=== PATIENT | male | born 1950 | race Caucasian/White ===

== ENCOUNTER 2016-10-20 20:22 | Emergency (ER) | payer MEDICARE, BC ==
[~2016-10-20] VITALS: Ht 180.3 cm; Wt 78.6 kg
[2016-10-20 20:23] VITALS: PULSE 80; TEMP 98.3
== END 2016-10-20 20:35 | disposition left against medical advice (07) ==
LOC: COL.ER 20:22
DX: T18.120A Food in esophagus causing compression of trachea, initial encounter (principal)

== ENCOUNTER → 2016-11-22 | Outpatient (CLI) | payer MEDICARE, BC | LOC: MHCPAIN 14:00 | DX: G89.29 Other chronic pain (principal); M47.27 Other spondylosis with radiculopathy, lumbosacral region | CPT/HCPCS: G0463 ==

== ENCOUNTER → 2017-10-09 | Outpatient (CLI) | payer BC, MEDICARE | LOC: MHCPAIN 09:43 | DX: G89.29 Other chronic pain (principal); M47.817 Spondylosis without myelopathy or radiculopathy, lumbosacral region; M54.16 Radiculopathy, lumbar region; M53.3 Sacrococcygeal disorders, not elsewhere classified; M96.1 Postlaminectomy syndrome, not elsewhere classified | CPT/HCPCS: G0463 ==

== ENCOUNTER → 2017-10-11 | Outpatient (CLI) | payer BC, MEDICARE | LOC: MHCPAIN 10:06 | DX: M53.3 Sacrococcygeal disorders, not elsewhere classified (principal) | CPT/HCPCS: J1040; Q9967 ==

== ENCOUNTER → 2017-11-06 | Outpatient (CLI) | payer BC, MEDICARE | LOC: MHCPAIN 10:13 | DX: G89.29 Other chronic pain (principal); M47.817 Spondylosis without myelopathy or radiculopathy, lumbosacral region; M54.16 Radiculopathy, lumbar region; M53.3 Sacrococcygeal disorders, not elsewhere classified | CPT/HCPCS: G0463 ==

== ENCOUNTER → 2018-01-28 | Outpatient (CLI) | payer BC, MEDICARE | LOC: MHCPAIN 10:34 | DX: G89.29 Other chronic pain (principal); M47.817 Spondylosis without myelopathy or radiculopathy, lumbosacral region; M54.16 Radiculopathy, lumbar region; M53.3 Sacrococcygeal disorders, not elsewhere classified; M96.1 Postlaminectomy syndrome, not elsewhere classified | CPT/HCPCS: G0463 ==

== ENCOUNTER → 2018-04-22 | Outpatient (CLI) | payer BC, MEDICARE | LOC: MHCPAIN 10:51 | DX: G89.29 Other chronic pain (principal); M47.817 Spondylosis without myelopathy or radiculopathy, lumbosacral region; M54.16 Radiculopathy, lumbar region; M53.3 Sacrococcygeal disorders, not elsewhere classified; M96.1 Postlaminectomy syndrome, not elsewhere classified | CPT/HCPCS: G0463 ==

== ENCOUNTER → 2018-10-22 | Outpatient (CLI) | payer BC, MEDICARE | LOC: MHCPAIN 10:09 | DX: G89.29 Other chronic pain (principal); M47.817 Spondylosis without myelopathy or radiculopathy, lumbosacral region; M54.16 Radiculopathy, lumbar region; M53.3 Sacrococcygeal disorders, not elsewhere classified; M96.1 Postlaminectomy syndrome, not elsewhere classified | CPT/HCPCS: G0463 ==

== ENCOUNTER → 2019-04-22 | Outpatient (CLI) | payer BC, MEDICARE | LOC: MHCPAIN 09:51 | DX: M53.3 Sacrococcygeal disorders, not elsewhere classified (principal); M79.18 Myalgia, other site | CPT/HCPCS: G0463 ==

== ENCOUNTER 2023-09-21 05:14 | Inpatient (IN) | payer MEDICARE ==
[2023-09-21] VITALS (10 sets, daily range): BP systolic 111–135; BP diastolic 60–77; PULSE 54–67; TEMP 97.9–98.5
[~2023-09-21] VITALS: Ht 180.3 cm; Wt 88.7 kg
[~2023-09-21 05:14] MED LIST: LR 1,000 ML IV SCH
[2023-09-21] MEDS ORDERED: PRINIVIL10 MG PO (06:13)
[2023-09-21] MEDS ORDERED: ADCIRCA20 MG PO (06:14)
[2023-09-21] MEDS ORDERED: PRILOSEC 20MG20 MG PO (06:14)
[2023-09-21] MEDS ORDERED: VITAMIN D31000 I1 PO (06:15)
[2023-09-21] MEDS ORDERED: FLOMAX 0.40.4 MG/CAP PO (06:15)
[2023-09-21] MEDS ORDERED: PROSCAR 5MG5 MG PO (06:16)
[2023-09-21] MEDS ORDERED: FOSAMAX 70MG TA70 MG PO ×2 (06:17→15:14)
[2023-09-21] MEDS ORDERED: Ondansetron 4 MG/2 ML VIAL ONE (06:35)
[2023-09-21] MEDS ORDERED: fentaNYL 50 MCG/ML 2 ML VIAL ONE (06:35)
[2023-09-21] MEDS ORDERED: NS 10 ML IV ONE (06:35)
[2023-09-21] MEDS ORDERED: Midazolam 2 MG/2 ML VIAL ONE (06:35)
[2023-09-21] MEDS ORDERED: Lidocaine PF 2% (20 MG/ML) 5 ML VIAL ONE (06:35)
[2023-09-21] MEDS ORDERED: dexAMETHasone 10 MG/ML VIAL ONE (06:35)
[2023-09-21] MEDS ORDERED: Glycopyrrolate 0.2 MG/ML 1 ML VIAL ONE (06:35)
[2023-09-21] MEDS ORDERED: diphenhydrAMINE 25 MG CAP PO PRN (07:00)
[2023-09-21] MEDS ORDERED: Docusate Sodium 100 MG CAP PO PRN (07:00)
[2023-09-21] MEDS ORDERED: D5 1/2 NS 1,000 ML IV SCH (07:00)
[2023-09-21] MEDS ORDERED: Magnes Hydrox (MOM) 80 MG/ML 30 ML CUP PO PRN (07:00)
[2023-09-21] MEDS ORDERED: diphenhydrAMINE 50 MG/ML 1 ML VIAL IV PRN (07:00)
[2023-09-21] MEDS ORDERED: oxyCODONE 5 MG TAB PO PRN (07:00)
[2023-09-21] MEDS ORDERED: Ondansetron 4 MG/2 ML VIAL IV PRN ×2 (07:00→08:30)
[2023-09-21] MEDS ORDERED: Mag/Al Hydrox/Simeth Susp 30 ML CUP PO PRN (07:00)
[2023-09-21] MEDS ORDERED: HYDROmorphone 0.5 MG/0.5 ML SYRINGE IV PRN (07:00)
[2023-09-21] MEDS ORDERED: Naloxone 0.4 MG/ML VIAL IV PRN (07:00)
[2023-09-21] MEDS ORDERED: ePHEDrine 50 MG/ML VIAL ONE (07:26)
[2023-09-21] MEDS ORDERED: EPINEPHrine 1 MG/1 ML Ampule IR ONE (07:42)
[2023-09-21] MEDS ORDERED: Topical Skin Adhesive 1 EACH (1 ML) TOP ONE (07:42)
[2023-09-21] MEDS ORDERED: HYDROmorphone 1 MG/1 ML SYRINGE [PACU/SDC ONLY] IV PRN (08:30)
[2023-09-21] MEDS ORDERED: Meperidine 50 MG/ML 1 ML VIAL IV PRN (08:30)
[2023-09-21] MEDS ORDERED: Morphine 2 MG/1 ML VIAL [PACU/SDC ONLY] IV PRN (08:30)
[2023-09-21] MEDS ORDERED: Celecoxib 200 MG CAP PO SCH (09:00)
--- NOTE | 2023-09-21 09:20 | NUR ---
Pt. arrived to the floor from PACU. Pt. is A&OX3, assessment complete. Dressing to rt. shoulder CDI. Shoulder sling on. Pt. denies pain or other needs, call light within reach.
[2023-09-21] MEDS ORDERED: ceFAZolin 2 G in Water For Injection,Sterile 20 ML IV SCH (14:30)
[2023-09-21] MEDS ORDERED: Melatonin 3 MG TAB PO PRN (21:00)
[2023-09-21] MEDS ORDERED: Finasteride 5 MG TAB PO SCH (21:00)
[2023-09-22] VITALS (13 sets, daily range): BP systolic 110–128; BP diastolic 65–76; PULSE 54–65; TEMP 98–98.3
[2023-09-22] MEDS ORDERED: Omeprazole 10 MG **** subs to Pantoprazole 20 MG PO SCH (07:00)
--- NOTE | 2023-09-22 07:30 | NUR ---
SHIFT ASSESSMENT COMPLETE. VSS. PATIENT AWAKE IN BED.MORNING MEDS GIVEN ORDERED. PATIENT STATES HE DID NOT GET MUCH SLEEP DUE TO CONSTANT ACHING PAIN THROUGHOUT THE NIGHT, SO FEELING EXHAUSTED THIS AM. PATIENT REPORTS PAIN THIS AM 5/10 PAIN MEDS GIVEN ORDERED. PATIENT IS AWAITING PT TO COME AND HELP HIM LEARN/ASSIST HIM ON AMBULATING IN HIS CURRENT CONDITION. PATIENT HAS NO OTHER NEEDS OR REQUEST AT THIS TIME. FALL PRECAUTIONS IN PLACE AND CALL LIGHT IN REACH.
[2023-09-22] MEDS ORDERED: Lisinopril 10 MG TAB PO SCH (09:00)
[2023-09-22] MEDS ORDERED: Cholecalciferol (Vit D3) 1000 Units TAB PO SCH (09:00)
--- NOTE | 2023-09-22 11:00 | NUR ---
Data: Spiritual care visit offered during Flap Lining Binder rounds. Patient declined. Assessment: None. Patient declined. Plan of Care: Flap Lining Binder educated Patient as to how to request a Flap Lining Binder should he change his mind. Chaplains will remain available as requested while Patient is admitted to this hospital.
--- NOTE | 2023-09-22 11:01 | NUR ---
SHIFT ASSESSMENT COMPLETE. VSS. PATIENT UP WALKING THE HALLS THIS AM. ALL MORNING MEDS GIVEN ORDERED. PATIENT STATED PAIN THROUGHOUT THE NIGHT BUT PAIN 3/10 THIS AM. PATIENT CURRENTLY NPO STATUS WILL ADVANCE TO [facility] FOR LUNCH TO SEE HOW SHE TOLERATES. PATIENT STATES NO BM OR GAS MOVMENT THIS AM. PATIENT HAS NO REQUEST AT THIS TIME. CALL LIGHT IN REACH
--- NOTE | 2023-09-22 14:01 | NUR ---
SW met with patient to complete initial assessment for discharge planning. Patient verified that he lives in [place] with his of 50 years Hattie ([phone]). Patient sees Concha August APRN as his PCP and uses [facility] pharmacy. Patient has crutches, wheelchair and shower chair at home. Patient denies having assigned DPOA to anyone but states his will make his decisions if needed. SW discussed rehab with patient including IPR and SNF. Patient does not qualify for SNF at this time due to admission status of [facility]. ZAID called Ginette with IPR to make referral for rehab. Discharge plan: IPR
[2023-09-23] VITALS (10 sets, daily range): BP systolic 114–144; BP diastolic 67–80; PULSE 58–71; TEMP 98.1–98.3
--- NOTE | 2023-09-23 06:03 | NUR ---
PT PAIN CONTROLLED WITH PO MEDS THIS SHIFT, ATTEMPTED BEDPAN THIS AM FOR BM, WAS ONLY ABLE TO PASS GAS, VOIDING PER URINAL. ICE PACK AND IMMOBILIZER TO RT SHOULDER. PT FEELS LIKE HE HAS TOO MUCH MOVEMENT IN THAT SHOULDER, TIGHTENED UP VELCO STRAPS, AND PILLOW PLACED UNDER ARM. WILL CHECK WITH ORTHO THIS AM ON HOW MUCH MOVEMENT IS ACCEPTABLE.
[2023-09-23] MEDS ORDERED: FOSAMAX 70 MG PO SCH (07:15)
[2023-09-23] MEDS ORDERED: oxyCODONE 5 MG TAB PO PRN ×4 (07:15→07:45)
--- NOTE | 2023-09-23 08:00 | NUR ---
PT AWAKE AND RESTING IN BED. SCHEDULED MEDS GIVEN PER eMAR. SLING ON RIGHT ARM. SIX GAUZE DRESSINGS TO THE RIGHT SHOULDER, CDI. PT C/O CONSTANT PAIN THAT IS MOSTLY RELIEVED WHEN HE IS SITTING UP IN BED. BED ALARM ON AND CALL LIGHT WITHIN REACH.
[2023-09-23] MEDS ORDERED: Patient's Own Medication Item PO SCH (14:30)
--- NOTE | 2023-09-23 18:18 | NUR ---
PT HAD MULTIPLE REQUESTS FOR BEDPAN THIS SHIFT WITH NO BM. OFFERED STOOL SOFTENER. PT AGREED TO COLACE. PRN COLACE GIVEN. PT REMAINS [facility] ON IPR TRANSFER TOMORROW. NO FURTHER CONCERNS AT THIS TIME. AT BEDSIDE. BED ALARM ON AND CALL LIGHT WITHIN REACH.
--- NOTE | 2023-09-23 18:21 | NUR ---
This nurse reviewed all documentation completed by SHELLY Valencia. Agree with all assessments and notes.
[2023-09-24] VITALS (7 sets, daily range): BP systolic 104–132; BP diastolic 61–84; PULSE 60–81; TEMP 98–98.2
--- NOTE | 2023-09-24 06:37 | NUR ---
PT REPORTS GOOD PAIN CONTROL TONIGHT, ABLE TO SLEEP AFTER HS MEDS GIVEN. NO BM THIS SHIFT, PRN COLACE GIVEN.
--- NOTE | 2023-09-24 06:49 | NUR ---
Pt sleeping in bed. Call light in reach.
--- NOTE | 2023-09-24 08:00 | NUR ---
Pt sitting up in bed. A&Ox4. VSS. S1S2. Clear lungs on RA. ABD round, soft, non-tender with audible bowel sounds. Palpable pulses in all extremities. Pt moving BLE with L arm. Shifting weight by himself. Pt deneis pain, n/v at this time. Pt reports no BM in multiple days. Discussed options. Pt had 2 doses of Colace last night, opted with MOM this AM. Pt discussed possibility of being transferred to [facility] today. Discussed referral process and approval. No further needs at this time. Call light in reach.
--- NOTE | 2023-09-24 12:43 | NUR ---
SW attended clinical rounds with team. Patient awaiting acceptance to IPR. ZAID notified by She with IPR that patient will be admitted today, patient was notified. Awaiting discharge orders.
--- NOTE | 2023-09-24 13:37 | NUR ---
D: Gas Shovel Operator stopped by room on rounds. A: Pt was getting ready to eat lunch. Pt has no needs right now. Pt appreciated the visit. P: Gas Shovel Operator informed pt that if he needed anything to let his nurse know. Gas Shovel Operator will follow up as needed.
--- NOTE | 2023-09-24 15:28 | NUR ---
Discontinued Pt's IV from L hand. Pressure bandage in place. Pt ambulated to IPR unit with this RN and ELMER Vogt. No further needs.
== END 2023-09-24 15:30 | DRG 509 ==
LOC: INPTSU 05:14 → SURG 05:14 → SDCO 05:14 → EDSTATUS 07:30 → SURG 09:50 → INPTSU 09:50 → SDCO 09-22 17:59 → SURG 09-22 18:00
PROVIDERS: ADMIT Orthopaedic Surgery Sports Medicine
PROC: 0RJJ4ZZ Inspection of Right Shoulder Joint, Percutaneous Endoscopic Approach (ICD-10-PCS; principal; 2023-09-22)
PROC: 0LQ14ZZ Repair Right Shoulder Tendon, Percutaneous Endoscopic Approach (ICD-10-PCS; 2023-09-22)
DX: M75.101 Unspecified rotator cuff tear or rupture of right shoulder, not specified as traumatic (principal); M19.011 Primary osteoarthritis, right shoulder
CPT/HCPCS: A4619; A9284; C1713; J0171; J0688; J0690; J1100; J1170; J2250; J2405; J2704; J2795; J3010; J7120

== ENCOUNTER 2023-09-24 11:32 | Inpatient (IN) | payer MEDICARE ==
[~2023-09-24] VITALS: Ht 180.3 cm; Wt 86.1 kg
[~2023-09-24 11:32] MED LIST changes: +ADCIRCA20 MG PO; +FLOMAX 0.40.4 MG/CAP PO; +FOSAMAX 70MG TA70 MG PO; -LR 1,000 ML IV SCH; +PRILOSEC 20MG20 MG PO; +PRINIVIL10 MG PO; +PROSCAR 5MG5 MG PO; +VITAMIN D31000 I1 PO
[2023-09-24] MEDS ORDERED: Sennosides/Docusate 8.6-50 MG TAB PO PRN (15:30)
[2023-09-24] MEDS ORDERED: Naloxone 0.4 MG/ML VIAL IV PRN (15:30)
[2023-09-24] MEDS ORDERED: Acetaminophen 325 MG TAB PO PRN (15:30)
[2023-09-24] MEDS ORDERED: Docusate Sodium 100 MG CAP PO PRN (15:30)
[2023-09-24] MEDS ORDERED: Polyethylene Glycol 3350 17 GM PDS PO PRN (15:30)
--- NOTE | 2023-09-24 16:05 | NUR ---
Pt transferred from surgical unit to [facility]. Oriented Pt and family to new room. No further needs at this time.
[2023-09-24 16:09] VITALS: BP 104/61; PULSE 72; TEMP 98.2
[2023-09-24 16:10] VITALS: BP_SYST 104
[2023-09-24] MEDS ORDERED: oxyCODONE 5 MG TAB PO PRN (16:45)
[2023-09-24 17:30] VITALS: BP 132/69; PULSE 85; TEMP 98.1
--- NOTE | 2023-09-24 19:00 | NUR ---
BEDSIDE SHIFT REPORT RECIEVED AT THIS TIME.
[2023-09-24 20:00] VITALS: BP_SYST 132
--- NOTE | 2023-09-24 20:04 | NUR ---
SHIFT ASSESSMENT COMPLETED AT THIS TIME. PT DENIES PAIN, SOB AND NAUSEA. FAMILY AT BEDSIDE. MEDICATION ADMINISTRATION COMPLETED WITHOUT COMPLICATIONS. FALL RISK PRECAUTIONS IN PLACE. CALL LIGHT WITHIN REACH. NO FURTHER NEEDS AT THIS TIME.
[2023-09-24] MEDS ORDERED: Finasteride 5 MG TAB PO SCH (21:00)
[2023-09-25] MEDS ORDERED: TADALAFIL 20 MG PO SCH (05:00)
[2023-09-25] MEDS ORDERED: Patient's Own Medication Item PO SCH (05:00)
[2023-09-25 05:36] VITALS: BP 127/73; PULSE 58; TEMP 98
[2023-09-25] MEDS ORDERED: Omeprazole 20 MG **** subs to Pantoprazole 40 MG PO SCH (07:00)
[2023-09-25 07:31] VITALS: BP_SYST 127
--- NOTE | 2023-09-25 07:33 | NUR ---
PT AWAKE AND RESTING IN BED. SCHEDULED MEDS GIVEN PER eMAR. SLING IN PLACE ON R ARM. SIX GAUZE DRESSINGS TO RIGHT SHOULDER, CDI. PT DENIES PAIN AND SOA. PT REPORTS NO COMPLAINTS WITH BOWELS AT THIS TIME. PT STATES HE IS ANXIOUS ABOUT THERAPY AND INPATIENT STAY. ALL QUESTIONS ANSWERED. BED ALARM ON AND CALL LIGHT WITHIN REACH. NO FURTHER CONCERNS AT THIS TIME.
[2023-09-25] MEDS ORDERED: Lisinopril 10 MG TAB PO SCH (09:00)
[2023-09-25] MEDS ORDERED: Cholecalciferol (Vit D3) 1000 Units TAB PO SCH (09:00)
--- NOTE | 2023-09-25 10:11 | NUR ---
PT C/O IRRITATION AROUND LEFT SIDE OF NECK D/T SLING PLACEMENT. APPLIED GAUZE AND TYE WRAP AROUND SLING TO REDUCE IRRITATION.
--- NOTE | 2023-09-25 16:30 | NUR ---
PT STATES NO RELIEF WITH GAUZE AND TYE WRAP AROUND SLING. REQUESTS PILLOWCASE TO BE USED INSTEAD. THIS NURSE PUT PILLOWCASE AROUND THEIR SLING.
[2023-09-25 16:45] VITALS: BP 122/76; PULSE 69; TEMP 98.2
--- NOTE | 2023-09-25 16:54 | NUR ---
Pt's brought in chair gilson Pt uses daily at home. Pt expressed he would like to use this chair as it is easier for him to get up out of over our recliner. Will have PT and OT evaluate chair and safety of use in AM.
[2023-09-25 19:54] VITALS: BP_SYST 122
--- NOTE | 2023-09-25 19:58 | NUR ---
SHIFT ASSESSMENT COMPLETED AT THIS TIME, PT A&OX4. PT REPORTS 4/10 PAIN IN HIS RIGHT SHOULDER. PRN TYELNOL ADMINISTERED AT THIS TIME ALONG WITH SCHEDULED EVENING MEDICATIONS WITHOUT COMPLICATIONS. PT DENIES NAUSEA AND SOB. PT ASSISTED ON THE BEDPAN. FALL PRECAUTIONS IN PLACE. CALL LIGHT WITHIN REACH. NO FURTHER NEEDS.
[2023-09-26 05:31] VITALS: BP 123/76; PULSE 58; TEMP 97.9
[2023-09-26 08:00] VITALS: BP_SYST 123
--- NOTE | 2023-09-26 09:29 | NUR ---
PATIENT ALERT AND ORIENTED X4. VSS. PATIENT HERE FOR RIGHT SHOULDER ARTHROPLASTY. SITES X6 CDI WITH GAUZE/TEGADERM. PATIENT REPORTS MILD PAIN THIS AM, DENIES NEED FOR PAIN MEDICATION. AM MEDS ADMINISTERED. PATIENT EATING BREAKFAST, WAITING ON THERAPY TO BEGIN. NO FURTHER NEEDS. CALL LIGHT IN REACH. BED ALARM ON.
--- NOTE | 2023-09-26 10:04 | NUR ---
Late entry: SW met with patient and Hattie ([phone]) late yesterday to complete initial assessment for discharge planning. They verify that they live in [place], patient sees Concha August APRN as PCP and they use [facility]. Patient uses crutches, wheelchair and shower chair at home for DME. He denies having a DPOA completed at this time. Patient is experiencing increased sadness and depression related to loss of independence. He is motivated to work with therapy during IPR admission to regain as much independence as possible. SW will follow up to schedule family meeting at a later time. Discharge plan dependent on progress with therapy. Discharge plan: re-eval
--- NOTE | 2023-09-26 13:20 | NUR ---
SW met with patient to provide copy of team conference notes and discuss discharge needs. Patient discussed his frustration and sadness related to loss of independence. Patient voiced fear of "ending up in correction with undertrain staff caring for him." Patient fearful of having another fall once he leaves IPR. Discussed scheduleing a family meeting for 10/02 at 1030 which was written on white board in room. Patient feels like he will not be strong enough or independent enough to return home at discharge from IPR and states he "knows he will need more therapy." Discussed possible referral to [facility] as plan B for discharge. Patient voiced excitement with this option if needed. Encouraged patient to continue to work hard with therapy and discussed the progress that he can make while in IPR. SW will continue to follow. Discharge plan: Home vs SNF/SB
[2023-09-26] MEDS ORDERED: FOSAMAX 70 MG PO SCH (17:15)
[2023-09-26 18:12] VITALS: BP 129/66; PULSE 67; TEMP 97.6
[2023-09-26 21:20] VITALS: BP_SYST 129
--- NOTE | 2023-09-26 21:30 | NUR ---
IM sitting up in bed upon this nurse's entry to room. A&Ox4. Scheduled medications along w/ PRN roxicodone administered per pt request. Aching pain to right shoulder reported. Shift assessment performed. Right upper extremity remains immobilized in sling. x6 gauze dressings CDI to right shoulder. Ice pack given to pt to ice right shoulder. Pt denies any loss of sensation to RUE. Pulses palpable and present. Pt denies any needs or concerns. Call light in reach. Care ongoing.
[2023-09-27 06:15] VITALS: BP 116/66; PULSE 72; TEMP 97.8
[2023-09-27 09:40] VITALS: BP_SYST 116
--- NOTE | 2023-09-27 09:40 | NUR ---
Pt. sitting up in bed. Pt. is A&OX3, assessment complete. Pt. assisted with getting dressed. Pt. able to dress self with mininal assist. Only needing help with shirt and sling. Pt. reports pain at a 3 and states, "it's there", but denies need for pain medication. Pt. then transfered to the wheelchair with sb assist and slide board. Pt. was able to independently transfer self with this nurse just holding the slide board to prevent it from moving. Pt. able to complete am cares independently. Pt. denies further needs, call light within reach.
[2023-09-27 16:49] VITALS: BP 122/70; PULSE 64; TEMP 98.3
[2023-09-27 20:00] VITALS: BP_SYST 122
--- NOTE | 2023-09-27 20:30 | NUR ---
UPON SHIFT ASSESSMENT SY WAS IN BEDSIDE RECLINER WITH VISITING BEDSIDE. HE IS AXO X4 AND VS ARE WNL. RT SHOULDER INSCISION SITE COVERED WITH GUAZE AND TEGADERM CDI. DISTAL PULSES, COLOR, CAP REFILL AND SENSATIONS GOOD. PATIENT C/O SLIGHT TINGLING IN RT ELBOW-NEURO CHECK WNL. LOOSENED SLING ON RT SHOULDER MOMENTARILY TO ALLEVIATE [id number] SLING. CALL LIGHT WITHIN REACH AND BED ALARM ON.
--- NOTE | 2023-09-28 02:00 | NUR ---
PATIENT RESTING PEACEFULLY SUPINE. RR 16. NO SIGNS OF DISTRESS.
[2023-09-28 05:32] VITALS: BP 119/56; PULSE 66; TEMP 98.2
[2023-09-28 08:00] VITALS: BP_SYST 119
--- NOTE | 2023-09-28 08:30 | NUR ---
PATIENT A&O X4. VSS. NO C/O PAIN OR N/V. PATIENT IS ASSIST X1. USES SLIDE BOARD FOR TRANSFERS. NWB ON R SHOULDER. MORNING MEDICATIONS ADMINISTERED AND SHIFT ASSESSMENT COMPLETE. NO FURTHER NEEDS AT THIS TIME. CALL LIGHT WITHIN REACH.
[2023-09-28] MEDS ORDERED: diphenhydrAMINE 25 MG CAP PO PRN (11:00)
--- NOTE | 2023-09-28 14:27 | NUR ---
Admission QIM scores were reviewed by the team. Code of 5 chosen for oral hygiene was determined by team discussion to be the most usual performance before interventions for this patient during the assessment period. Code of 88 chosen for toileting hygiene was determined by team discussion to be the most usual performance for this patient during the discharge assessment period. Code of 1 chosen for toilet transfers was determined by team discussion to be the most usual performance for this patient during the discharge assessment period. Code of 1 chosen for chair to bed was determined by team discussion to be the most usual performance for this patient during the discharge assessment period. Code of 2 chosen for wheel 50 feet w/ 2 turns was determined by team discussion to be the most usual performance before interventions for this patient during the assessment period.--Capri Bey, PD
--- NOTE | 2023-09-28 15:39 | NUR ---
linen room worker met with pt to check-in and assess for any needs. He states he is "all good" and does not need anything. Discharge Plan: re-eval
[2023-09-28 17:04] VITALS: BP 114/69; PULSE 63; TEMP 98.1
[2023-09-28 19:34] VITALS: BP_SYST 114
[2023-09-28] MEDS ORDERED: Melatonin 3 MG TAB PO SCH (21:00)
[2023-09-29 04:53] VITALS: BP 106/64; PULSE 61; TEMP 97.8
[2023-09-29 08:45] VITALS: BP_SYST 106
--- NOTE | 2023-09-29 08:55 | NUR ---
PT RESTING IN BED, ALERT AND ORIENTEDX4. RATES PAIN 3/10 IN THE RIGHT SHOULDER. ASSESESD PT. HELPED PT GET DRESSED AND READJUSTED BRACE. YAQUELIN ON SHOULDER IS CLEAN DRY INTACT. GAVE MORNING MEDS. NO OTHER COMPLAINTS AT THIS TIME. CALL LIGHT WITHIN REACH.
[2023-09-29 17:01] VITALS: BP 112/63; PULSE 78; TEMP 98.8
[2023-09-29 19:04] VITALS: BP_SYST 112
[2023-09-30 05:36] VITALS: BP 113/69; PULSE 56; TEMP 97.7
[2023-09-30] MEDS ORDERED: Patient's Own Medication Item PO SCH (07:00)
[2023-09-30 08:03] VITALS: BP_SYST 113
--- NOTE | 2023-09-30 08:07 | NUR ---
PT RESTING IN BED, ALERT AND ORIENTEDX4. RATES PAIN 4/10 WHEN MOVING THE RIGHT ARM BUT NO PAIN WHEN SITTING STILL. ASSESSED PT. YAQUELIN AND TEGADERM ON RIGHT SHOULDER INTACT. GAVE MORNING MEDS. HELPED PT GET CLOTHES TO GET DRESSED. NO OTHER COMPLAINTS AT THIS TIME. CALL LIGHT WITHIN REACH.
[2023-09-30 17:42] VITALS: BP 137/75; PULSE 70; TEMP 98
[2023-09-30 20:00] VITALS: BP_SYST 137
[2023-10-01 05:52] VITALS: BP 114/69; PULSE 53; TEMP 97.7
[2023-10-01 09:24] VITALS: BP_SYST 114
[2023-10-01 17:11] VITALS: BP 117/69; PULSE 67; TEMP 98.1
--- NOTE | 2023-10-01 19:30 | NUR ---
SHIFT ASSESSMENT COMPLETE. VSS. PATIENT RESTING IN BED. PATIENT STATES PAIN 2/10 NO PAIN MEDS REQUESTED AT THIS TIME. ALL NIGHT MEDS GIVEN ORDERED. PATIENT HAS NO COMPLAINTS AT THIS TIME. CALL LIGHT IN REACH
[2023-10-01 20:00] VITALS: BP_SYST 117
--- NOTE | 2023-10-02 03:26 | NUR ---
Patient called with c/o generalized body aches-rating pain 4/10 on pain scale-requesting tylenol. Given at this time. Patient states mattress of bed feels "warped" and is slanted to the right. Report given to primary nurse PANKAJ Maharaj. Patient requesting new mattress later today.
[2023-10-02 05:45] VITALS: BP 106/67; PULSE 55; TEMP 98
[2023-10-02 09:45] VITALS: BP_SYST 106
--- NOTE | 2023-10-02 10:54 | NUR ---
PT SITTING IN BED, ASSESSMENT COMPLETED EARILER THIS MORNING. HE IS DRESSING HIMSELF. MEDICATIONS ADMINISTERED PER EMAR. NO COMPLAINTS AT THIS TIME. CALL LIGHT IN REACH
--- NOTE | 2023-10-02 11:04 | NUR ---
PATIENT ALERT AND ORIENTED X4. VSS. PATIENT HERE FOR REHAB S/P RIGHT TOTAL SHOULDER. INCISIONS X6 CDI WITH GAUZE/ TEGADERM. PATIENT REPORTS MILD PAIN, DENIES NEED FOR PAIN MEDICATION. PATIENT IN BED WAITING ON BREAKFAST. NO FURTHER NEEDS. CALL LIGHT IN REACH. BED ALARM ON.
--- NOTE | 2023-10-02 13:06 | NUR ---
SW met with patient for follow up. Patient presented with sad affect and depressed mood. Patient expressed frustration with his situation and fear of "what's next". Discussed progress patient has made with therapy. Patient voiced that he feels pushed to discharge to home and voices fear of losing use of his legs if he doesn't walk every day. SW discussed possible swing bed referral for next steps after IPR discharge. Patient voiced concern about cost of hospitalization. SW contacted financial counselor to request her to meet with patient to discuss copay and possibility of FAA for co pay amounts.
[2023-10-02] MEDS ORDERED: Ondansetron 4 MG/2 ML VIAL IV PRN (13:45)
[2023-10-02 16:49] VITALS: BP 125/74; PULSE 76; TEMP 98.4
[2023-10-02 20:46] VITALS: BP_SYST 125
--- NOTE | 2023-10-02 21:00 | NUR ---
PT A&O X4 LAYING IN BED. VSS. SHIFT ASSESSMENT & HS MEDS COMPLETE. PT DENIES NEED FOR PAIN MEDS AT THIS TIME, STATES "MY BODY JUST ACHES FROM BEING OLD". RT ARM SLING ON. X6 DRSGS TO RIGHT SHOULDER ARE CDI & ICE PACK IN PLACE. PT DENYING OTHER NEEDS. CALL LIGHT IN REACH
--- NOTE | 2023-10-03 03:17 | NUR ---
pt c/o some sore/achey pain to his shoulder & requesting tylenol, gave per mar. denying other needs. call light in reach
[2023-10-03 05:38] VITALS: BP 112/68; PULSE 56; TEMP 97.7
--- NOTE | 2023-10-03 06:16 | NUR ---
pt resting in bed. denying pain or further needs this morning. call light in reach
[2023-10-03 08:00] VITALS: BP_SYST 112
--- NOTE | 2023-10-03 12:50 | NUR ---
SW attended clinical team conference earlier this morning. Discussed patient's progress with therapy and discharge needs. SW attended family meeting with team, patient and in patient's room. Updated patient and on progress with therapy and discussed varying options for discharge plan. Discussed home with HH vs swing bed for continued rehab. Team offered home evaluation to determine patient's needs and ability. PT/OT to assess car transfers today after meeting. Discharge is tenatively for 10/08 Discharge plan: Home with HH vs SB
[2023-10-03 18:25] VITALS: BP 121/68; PULSE 63; TEMP 98.1
--- NOTE | 2023-10-03 21:20 | NUR ---
PT A&O X4 LAYING IN BED. VSS. SHIFT ASSESSMENT AND HS MEDS COMPLETE. PT IS DENYING PAIN AT THIS TIME. SLING IN PLACE TO RUE AND X6 DRESSINGS TO RIGHT SHOULDER ARE CDI. PT DENYING FURTHER NEEDS AT THIS TIME. CALL LIGHT IN REACH
--- NOTE | 2023-10-04 02:00 | NUR ---
PT REPORTING SOME PAIN AND ACHES ALL OVER HIS BODY, SPECIFICALLY HIS HIP. GAVE PRN TYLENOL PER APR.
[2023-10-04 05:41] VITALS: BP 111/64; PULSE 55; TEMP 97.6
--- NOTE | 2023-10-04 05:50 | NUR ---
pt resting in bed. denying pain or further needs at this time. call light in reach
[2023-10-04 08:00] VITALS: BP_SYST 111
--- NOTE | 2023-10-04 08:45 | NUR ---
pt a&ox4 sitting up in bed getting dressed independently. vss. pt denies pain. sling to right arm in place, incisions are cdi. meds given and assessment complete. pt tolerating diet well. denies needs at this time. call light in reach.
--- NOTE | 2023-10-04 14:21 | NUR ---
SW was informed [facility] accepts pt for Sunday.
[2023-10-04 17:46] VITALS: BP 160/96; PULSE 61; TEMP 98
--- NOTE | 2023-10-04 19:29 | NUR ---
PATIENT LAYING IN BED ALERT AND ORIENTED, VSS, DRESSINGS CDI, NO ACUTE EVENTS.
[2023-10-04 20:00] VITALS: BP_SYST 160
[2023-10-05 05:48] VITALS: BP 120/72; PULSE 52; TEMP 97.8
[2023-10-05 09:56] VITALS: BP_SYST 120
--- NOTE | 2023-10-05 11:19 | NUR ---
PATIENT ALERT AND ORIENTED X4. VSS. PATIENT HERE FOR RIGHT SHOULDER SURGERY. PATIENT DENIES PAIN THIS AM. AM MEDS ADMINISTERED. PATIENT DENIES ANY FURTHER NEEDS. CALL LIGHT IN REACH. BED ALARM ON.
--- NOTE | 2023-10-05 13:59 | NUR ---
Spoke w/ pt & informed him of [facility] acceptance. He was pleased to here this. He did inquire about transportation & told him SW will see what could be worked out but he might want to talk w/ someone just in case. He had no other questions/concerns at this time.
[2023-10-05 17:27] VITALS: BP 124/72; PULSE 73; TEMP 98.1
[2023-10-05 20:00] VITALS: BP_SYST 124
--- NOTE | 2023-10-05 21:15 | NUR ---
Pt's at bedside at [facility] of shift assisting pt. w/ oral hygiene setup. Scheduled meds administered per APR. Shift assessment complete. Pt's mood doesn't appear poor at this time, but he is discussing recently feeling "depressed" about his health. Pt. claims to be feeling "much better," however. Pt. has sling applied to R shoulder. X6 incisions to R shoulder. Dressings CDI. Pt BLE are flaccid. Pedal pulses present. All other findings WNL. Pt. denies pain at this time. Emptied 100 cc clear harry urine from urinal. No request or complaints from pt. at this time. Call light in reach
--- NOTE | 2023-10-06 03:39 | NUR ---
Pt. requesting Tylenol- c/o discomfort in lower back that he attests to lying in bed for too long. Pain rated 2/10. PRN tylenol administered per APR.
[2023-10-06 05:09] VITALS: BP 116/72; PULSE 63; TEMP 97.9
--- NOTE | 2023-10-06 05:22 | NUR ---
Pt. had uneventful evening. Minor discomfort during the night-alleviated w/ tylenol. VSS. Pt resting in bed w/ eyes closed, respirations even and unlabored. Call light in reach.
[2023-10-06 08:00] VITALS: BP_SYST 116
--- NOTE | 2023-10-06 08:00 | NUR ---
PATIENT A&O X4. NO C/O PAIN OR N/V. SHIFT ASSESSMENT COMPLETE AND MORNING MEDICATIONS ADMINISTERED. PATIENT USES SLIDEBOARD FOR SURFACE TRANSFERS AND AMBULATES WITH CRUTCHES WITH ASSIST X2 AND GAIT BELT. PATIENT IN GOOD SPIRITS THIS MORNING. NO FURTHER NEEDS AT THIS TIME. CALL LIGHT WITHIN REACH.
[2023-10-06 16:39] VITALS: BP 123/71; PULSE 62; TEMP 98.8
[2023-10-06 20:00] VITALS: BP_SYST 123
--- NOTE | 2023-10-06 20:15 | NUR ---
Assisted pt. to bed from restroom w/ PCT. Pt uses slideboard and gaitbelt to transfer to w/c. Pt. reports BM. Scheduled meds administered per APR. Shift assessment complete. Sling to Rt. shoulder in place. x6 incisions to Rt. shoulder open to air. Edges well approximated. Pt. denies pain at this time. All other findings WNL. Pt. resting in bed w/ call light in reach. No requests or complaints at this time.
[2023-10-07 05:55] VITALS: BP 116/64; PULSE 53; TEMP 97.8
--- NOTE | 2023-10-07 06:23 | NUR ---
Pt. had uneventful evening. Reports he did not sleep well last night. Scheduled meds administered per AR. Pt. denies request or complaints this morning. Call light in reach.
[2023-10-07 08:00] VITALS: BP_SYST 116
--- NOTE | 2023-10-07 08:00 | NUR ---
Patient A&Ox4. No c/o pain or n/v. Patient currently eating breakfast. Pt transfers using slideboard with assist x1 with gait belt. Pt ambulates using crutches with assist x1 and gait belt. Pt wants to ambulate with staff a couple times throughout the shift. Incision sites on R shoulder open to air and edges well approximated. Shift assessment complete and medications administered. No further needs at this time. Call light within reach.
[2023-10-07 17:35] VITALS: BP 135/74; PULSE 61; TEMP 98
[2023-10-07 19:49] VITALS: BP_SYST 135
--- NOTE | 2023-10-07 20:30 | NUR ---
Assessment complete. A&Ox3. Denies pain/nausea/shortness of breath. Right upper extremity in sling-incisions with no s/s of infection noted-edges well approximated. Refusing fresh ice pack-asked to have current one removed. VS have been stable. Plan of care discussed for this shift to include meds/pain control/calling for questions/concerns. Verbalizes understanding. Call light in reach. Will monitor.
--- NOTE | 2023-10-08 00:23 | NUR ---
Resting eyes closed. NO s/s of pain or discomfort noted. Will monitor.
[2023-10-08 05:50] VITALS: BP 117/71; PULSE 53; TEMP 97.6
[2023-10-08 08:00] VITALS: BP_SYST 117
--- NOTE | 2023-10-08 08:30 | NUR ---
Pt a&ox4. VSS. Pt c/o increased pain throughout the weekend but does not want any pain intervention at this time. Pt has been using ice and taking tylenol for pain. Pt transfers using slideboard with assist x1. Patient ambulates with assist x1-2 with gait belt and crutches. Pt currently performing ADLs independently. Shift assessment complete and morning medications administered. Call light within reach and no further needs at this time.
--- NOTE | 2023-10-08 16:47 | NUR ---
fruit i farmworker was notified by Capri, IPR director, that patient will be transferring to [facility] [facility] tomorrow, 10/09/23 and the patient was asking questions about transportation. ZAID met with patient to discuss discharge tomorrow to the swing bed in [place]. Patient stated he has a family member or friend available to transport him to the facility but he wants to ensure the swing bed will have a slide board and a wheelchair there for him upon arrival. ZAID notified Raysa with [facility] and asked if they had a preferred timeframe for patient to arrive. Raysa expressed they were flexible but earlier the better. SW expressed they could set it for 11 am as that is typically the earliest for IPR. Raysa stated that would work. Raysa provided nurse to nurse is [phone] and the doc to doc will be with Sia [phone]. Raysa stated she was gong to look and ensure they have the slide board and wheelchair ready for him. ZAID notified Capri with IPR of discharge timeframe. SW notified patient of discharge timeframe and he stated that would work for him. fruit i farmworker reviewed the important message from Medicare with patient and his . Patient understood and signed the form. SW made copy, placed original in chart and provided copy to patient. No further questions or concerns. Discharge plan: [facility]
[2023-10-08 18:30] VITALS: BP 108/70; PULSE 80; TEMP 98.2
[2023-10-08 21:00] VITALS: BP_SYST 108
--- NOTE | 2023-10-08 21:00 | NUR ---
PT A&O X4 LAYING IN BED. VSS. SHIFT ASSESSMENT & HS MEDS COMPLETE. PT DENYING PAIN AT THIS TIME. SLING TO RUE & X6 INCISIONS GOLF COURSE ARCHITECT & WELL APPROX. ICE PACK TO RT SHOULDER. PT DENYING NEEDS AT THIS TIME. CALL LIGHT IN REACH
--- NOTE | 2023-10-09 05:14 | NUR ---
PT RESTING IN BED WITH UNLABORED RESP. REPORTS PAIN HAS IMPROVED SINCE PRN TYLENOL WAS GAVE LAST NIGHT FOR PAIN. DENYING OTHER NEEDS AT THIS TIME. CALL LIGHT IN REACH
[2023-10-09 05:35] VITALS: BP 105/65; PULSE 55; TEMP 97.8
[2023-10-09 08:00] VITALS: BP_SYST 105
--- NOTE | 2023-10-09 09:14 | NUR ---
PATIENT ALERT AND ORIENTED X4. VSS. PATIENT HERE FOR REHAB S/P RIGHT TOTAL SHOULDER. INCISIONS X6 CDI AND SHIRA. PATIENT DENIES ANY PAIN THIS AM. AM MEDS ADMINISTERED. PATIENT GETTING DRESSED. NO FURTHER NEEDS. CALL LIGHT IN REACH. BED ALARM ON.
[2023-10-09] MEDS ORDERED: TYLENOL 325MG325 MG PO (09:25)
[2023-10-09] MEDS ORDERED: MELATIN 3 MG-11 TAB PO (09:27)
--- NOTE | 2023-10-09 10:59 | NUR ---
REPORT CALLED TO [facility]
--- NOTE | 2023-10-09 14:35 | NUR ---
Discharge QIM scores were reviewed by the team. Code of 5 chosen for chair to bed was determined by team discussion to be the most usual performance for this patient during the discharge assessment period. Code of 88 chosen for walk 10 feet on uneven surface was determined by team discussion to be the most usual performance for this patient during the discharge assessment period. Code of 88 chosen for knot picker cloth objects was determined by team discussion to be the most usual performance for this patient during the discharge assessment period.--Capri Bey, PD
== END 2023-10-09 11:00 | DRG 561 ==
PROVIDERS: ADMIT Physical Medicine & Rehabilitation Sports Medicine
DX: Z47.89 Encounter for other orthopedic aftercare (principal); R29.898 Other symptoms and signs involving the musculoskeletal system; G83.9 Paralytic syndrome, unspecified; N40.0 Benign prostatic hyperplasia without lower urinary tract symptoms; R26.89 Other abnormalities of gait and mobility; R53.81 Other malaise; I10 Essential (primary) hypertension; K21.9 Gastro-esophageal reflux disease without esophagitis; Z86.12 Personal history of poliomyelitis; Z74.09 Other reduced mobility; Z79.899 Other long term (current) drug therapy; R13.10 Dysphagia, unspecified; L29.9 Pruritus, unspecified
CPT/HCPCS: A9284